=== PATIENT | female | born 1955 | race Caucasian/White ===

== ENCOUNTER 2016-07-30 20:05 | Emergency (ER) | payer MEDICARE, MEDICAID ==
[2016-07-30] MEDS ORDERED: NO HOME MEDICATION XX (20:34)
[2016-07-30] MEDS ORDERED: BENZTROPINE MESY1 M1 (21:13)
[2016-07-30] MEDS ORDERED: OMEPRAZOLE20 M3 PO (21:13)
[2016-07-30] MEDS ORDERED: PRAVASTATIN SOD20 M1 PO (21:13)
[2016-07-30] MEDS ORDERED: BACTRIM DS TAB1 EAC2 (21:14)
[2016-07-30] MEDS ORDERED: PLAVIX75 M1 (21:14)
[2016-07-30] MEDS ORDERED: ZESTRIL20 M3 (21:14)
[2016-07-30] MEDS ORDERED: INVOKAMET 50-51 EACH PO (21:15)
[2016-07-30 21:37] LABS: BASO % 0.2 % (0-2); EOS % 1.1 % (0-7); EOSINOPHIL ABSOLUTE COUNT 0.1 tho/cmm (0.0-0.7); HCT-HEMATOCRIT 42.8 % (34.0-49.0); HGB-HEMOGLOBIN 13.8 gm/dl (12.0-15.5); IMMATURE GRANULOCYTES ABSOLUTE 0.02 tho/cmm (0-0.03); IMMATURE GRANULOCYTES PERCENT 0.2 % (0-0.3); LYMPH % 22.9 % (20-45); LYMPH ABSOLUTE COUNT 2.1 tho/cmm (0.8-4.5); MCH (MEAN CORPUSCULAR HGB) 28.8 pg (28.0-32.0); MCHC MEAN CORPUSCULAR HGB CONC 32.2 % (32.0-36.0); MCV (MEAN CELL VOLUME) 89.2 fl (82.0-96.0); MEAN PLATELET VOLUME 10.8 cmc (9.4-12.4); MONOCYTE ABSOLUTE COUNT 0.9 tho/cmm (0.0-1.2); NEUTROPHILS % 65.6 % (40-80); PLATELET COUNT 182 tho/cmm (150-450); RED CELL DISTRIBUTION WIDTH 14.4 % (12.4-16.4); WHITE BLOOD COUNT 9.2 tho/cmm (4.0-10.0)
[2016-07-30 21:49] LABS: ANION GAP 15 mmol/L (0-20); BLOOD UREA NITROGEN 15 mg/dl (6-24); CALCIUM 8.4 mg/dl (8.5-10.5); CARBON DIOXIDE-VENOUS 23 mmol/L (22-32); CHLORIDE 107 mmol/l (96-110); GLUCOSE 156 mg/dL (70-110); SODIUM 140 mmol/L (135-145); eGFR VALUE FOR BLACK 63 mL/Min
[2016-07-30 21:50] LABS: URINE APPEARANCE HAZY; URINE BILIRUBIN NEGATIVE (NEG); URINE BLOOD NEGATIVE (NEG); URINE COLOR YELLOW; URINE GLUCOSE (UA) NEGATIVE (NEG); URINE KETONE SMALL (NEG); URINE LEUKOCYTE ESTERASE POSITIVE (NEG); URINE NITRITE NEGATIVE (NEG); URINE PROTEIN MODERATE (NEG); URINE SPECIFIC GRAVITY 1.005 (1.003-1.030)
[2016-07-30 21:51] LABS: POTASSIUM 4.7 mmol/L (3.7-5.1)
[2016-07-30 22:01] LABS: URINE BACTERIA 2+; URINE EPITHELIAL CELLS 40-50 /[HPF] (0-10)
[2016-07-30 22:02] LABS: URINE WBC 20-30 /[HPF] (0-5)
[2016-07-30 22:04] LABS: URINE RBC 0-2 /[HPF] (0-5)
[2016-07-30] MEDS ORDERED: LEVAQUIN500 M1 PO (22:14)
== END 2016-07-30 23:20 ==
LOC: EDMED 20:05
PROVIDERS: Emergency Medicine
DX: J11.1 Influenza due to unidentified influenza virus with other respiratory manifestations (principal); J20.9 Acute bronchitis, unspecified; N39.0 Urinary tract infection, site not specified; I25.2 Old myocardial infarction; I10 Essential (primary) hypertension; E11.9 Type 2 diabetes mellitus without complications; E78.5 Hyperlipidemia, unspecified; R42 Dizziness and giddiness; Z95.5 Presence of coronary angioplasty implant and graft; Z79.899 Other long term (current) drug therapy; F17.210 Nicotine dependence, cigarettes, uncomplicated
CPT/HCPCS: J0696; J7030